=== PATIENT | female | born 1980 | race American Indian/Alaskan Native ===

== ENCOUNTER 2021-11-28 12:16 | Emergency (ER) | payer MEDICAID ==
[2021-11-28 12:48] VITALS: BP 174/117
--- NOTE | 2021-11-28 15:10 | Emergency Department Report ---
ED Female HPI - General Chief complaint: Urogenital-Female Stated complaint: MUSCLE PAIN/VAGINAL/NO SLEEP Time Seen by Provider: 11/28/21 14:47 Source: patient Mode of arrival: Ambulatory Limitations: No Limitations - History of Present Illness Initial comments: Patient is a 41-year-old female that comes to the emergency room complaining of not sleeping in several days due to vaginal muscle spasms that she has been having. She endorses these muscle spasms for up to a year. However, in the last few days she has been unable to sleep. When her is in the room she rides around as though she was having an orgasm. When he is not in the room she even yells out as if she were having sex. Patient states that she does not recall these events when she wakes up. Patient has a history of anxiety. She is on Prozac. She has no HI or SI. 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 Her last menstrual period was November 15. She denies vaginal bleeding, dysuria, fever or chills. She endorses discharge only when having these rhythmic vaginal spasms. Patient's blood pressure noted to be elevated on arrival to ER. She has no history of hypertension. She is obese. She has no chest pain or shortness of breath. She has no neurodeficit. Complaint: other -: Gradual, month(s) Consistency: intermittent Improves with: none Worsens with: none Are you Now?: No Associated Symptoms: denies other symptoms, vaginal discharge (Only with above- stated complaint). denies: vaginal bleeding, abdominal pain, nausea/vomiting, fever/chills, headaches, loss of appetite, dysuria, hematuria, rash, seizure, shortness of breath, syncope, weakness - Related Data Sexually active: Yes Allergies Allergy/AdvReac Type Severity Reaction Status Date / Time No Known Allergies Allergy Unverified 11/28/21 12:44 ED Review of Systems ROS: Stated complaint: MUSCLE PAIN/VAGINAL/NO SLEEP Other details as noted in HPI Comment: All other systems reviewed and negative ED Past Medical Hx - Past Medical History Previous Medical History?: Yes Additional medical history: Anxiety - Surgical History Past Surgical History?: No - Family History Family history: no significant - Social History Substance Use Type: Other (Denies) ED Physical Exam - General Limitations: No Limitations General appearance: alert, in no apparent distress - Head Head exam: Present: atraumatic, normocephalic - Eye Eye exam: Present: normal appearance - ENT ENT exam: Present: mucous membranes moist - Neck Neck exam: Present: normal inspection - Respiratory Respiratory exam: Present: normal lung sounds bilaterally. Absent: respiratory distress - Cardiovascular Cardiovascular Exam: Present: regular rate, normal rhythm. Absent: systolic murmur, diastolic murmur, rubs, gallop - GI/Abdominal GI/Abdominal exam: Present: soft, normal bowel sounds - Extremities Exam Extremities exam: Present: normal inspection - Back Exam Back exam: Present: normal inspection - Neurological Exam Neurological exam: Present: alert, oriented X3 - Psychiatric Psychiatric exam: Present: normal affect, normal mood - Skin Skin exam: Present: warm, dry, intact, normal color. Absent: rash ED Course Vital Signs 11/28/21 12:44 Temperature 98.7 F Pulse Rate 97 H Respiratory 18 Rate Blood Pressure 174/117 [Right] O2 Sat by Pulse 99 Oximetry - Reevaluation(s) Reevaluation #1: 11/28/21 15:48 Home medications [facility] ED Medical Decision Making - Medical Decision Making Labs 11/28/21 11/28/21 Unknown Unknown Urine Color Yellow Urine Turbidity Clear Urine pH 6.0 Ur Specific [place] 1.024 Urine Protein <15 mg/dl Urine Glucose (UA) Neg Urine Ketones Neg Urine Blood Neg Urine Nitrite Neg Urine Bilirubin Neg Urine Urobilinogen 2.0 Ur Leukocyte Esterase Neg Urine WBC (Auto) < 1.0 Urine RBC (Auto) < 1.0 U Epithel Cells (Auto) 13.0 Urine Mucus 1+ Urine HCG, Qual Negative U Marijuana (THC) Screen Presumptive positive UDS pending negative UA noted Vital Signs 11/28/21 12:44 Temperature 98.7 F Pulse Rate 97 H Respiratory 18 Rate Blood Pressure 174/117 [Right] O2 Sat by Pulse 99 Oximetry Patient does not have a history of hypertension. I have asked her to monitor her blood pressure. Have given her referral to PCP. Patient denies chest pain or shortness of breath. Discussed findings with patient and her . Patient will follow-up with her [facility] and primary care. Have given her referrals for both. Patient has been verbalized understanding of discharge plan of care including diet, activity, medications and follow-up. On discharge patient is ambulatory nontoxic [id number]. She is taking p.o. - Differential Diagnosis Rule out UTI, , sleep disorder, drug use, mental health disorder Critical care attestation.: If time is entered above; I have spent that time in minutes in the direct care of this critically ill patient, excluding procedure time. ED Disposition Clinical Impression: Elevated blood pressure reading, History of anxiety, Sleep disorder Obese Qualifiers: Obesity type: unspecified obesity type Disposition: HOME / SELF CARE / HOMELESS Is pt being admited?: No Does the pt Need Aspirin: No Condition: Stable Additional Instructions: Monitor your blood pressure. Drink a lot of water. Avoid fried food and fast food. Avoid salt. Monitor stressed. Follow-up with PCP for blood pressure. Referral below Benadryl for sleep Avoid drugs and alcohol Follow-up with [facility] for vaginal complaints/concerns Activity as tolerated Continue your home Prozac Referrals: DIMAS ORDONEZ MD [Staff Physician] - 3-5 Days ROCAEL WOLF MD [Staff Physician] - 3-5 Days Time of Disposition: 15:50
[2021-11-28 15:34] LABS: Bilirubin,Urine NEG (Negative); Blood,Urine NEG (Negative); Color,Urine Yellow (Yellow); Mucus,Urine 1+ /HPF; Protein,Urine <15 mg/dL mg/dL (Negative); RBC,Urine < 1.0 /HPF (0.0-6.0); WBC,Urine < 1.0 /HPF (0.0-6.0)
[2021-11-28 15:42] LABS: HCG Qualitative,Urine Negative (Negative)
[2021-11-28 15:45] LABS: Amphetamine Screen,Urine PRESUMPTIVE NEGATIVE; Benzodiazepines Screen,Urine PRESUMPTIVE NEGATIVE; Cannabinoid Screen,Urine PRESUMPTIVE POSITIVE; Cocaine Screen,Urine PRESUMPTIVE NEGATIVE; Methadone Screen,Urine PRESUMPTIVE NEGATIVE; Opiate Screen,Urine PRESUMPTIVE NEGATIVE
== END 2021-11-28 15:55 | disposition home or self-care (01) ==
LOC: ED 12:16
DX: I10 Essential (primary) hypertension (principal); F41.9 Anxiety disorder, unspecified; G47.9 Sleep disorder, unspecified; E66.9 Obesity, unspecified; Z79.899 Other long term (current) drug therapy
CPT/HCPCS: 80307; 81001; 81025; 99283